=== PATIENT | female | born 1995 | race Two or more races ===

== ENCOUNTER 2020-11-17 23:51 | Emergency (ER) | payer BC ==
[~2020-11-17] VITALS: Ht 154.9 cm; Wt 59.0 kg
[2020-11-18] MEDS ORDERED: VENLAFAXINE HCL75 M1 (00:10)
[2020-11-18] MEDS ORDERED: NAPROXEN SODIU550 MG PO (01:29)
== END 2020-11-18 02:07 | disposition home or self-care (01) ==
LOC: ER 23:51
DX: S90.31XA Contusion of right foot, initial encounter (principal); S90.01XA Contusion of right ankle, initial encounter; W22.8XXA Striking against or struck by other objects, initial encounter; Y93.89 Activity, other specified; Y92.832 Beach as the place of occurrence of the external cause; Y99.8 Other external cause status